=== PATIENT | male | born 1960 | race Caucasian/White ===

== ENCOUNTER 2019-06-14 20:52 | Emergency (ER) | payer MEDICAID ==
[~2019-06-14] VITALS: Ht 177.8 cm; Wt 138.3 kg
[2019-06-14 20:56] VITALS: Ht 177.8 cm; Wt 138.3 kg
[2019-06-15 03:01] VITALS: BP 109/77
== END 2019-06-15 03:01 | disposition home or self-care (01) ==
LOC: ED 20:52
DX: J45.901 Unspecified asthma with (acute) exacerbation (principal)
CPT/HCPCS: J2930; J3475; J7613; J7644

== ENCOUNTER 2019-06-17 12:23 | Emergency (ER) | payer MEDICAID ==
[~2019-06-17] VITALS: Ht 177.8 cm; Wt 139.7 kg
[2019-06-17 12:36] VITALS: Ht 177.8 cm; Wt 139.7 kg
[2019-06-17 15:05] VITALS: BP 153/84
== END 2019-06-17 15:05 | disposition home or self-care (01) ==
LOC: ED 12:23
DX: J98.01 Acute bronchospasm (principal); I10 Essential (primary) hypertension
CPT/HCPCS: J7512; J7613; Q0092